=== PATIENT | male | born 1975 | race Two or more races ===

== ENCOUNTER 2018-08-03 19:08 | Inpatient (IN) | payer OTHER ==
[~2018-08-03] VITALS: Ht 175.3 cm; Wt 212.0 kg
[2018-08-03] MEDS ORDERED: METFORMIN HCL500 M1 PO (19:22)
[2018-08-03] MEDS ORDERED: COZAAR25 MG PO (19:22)
[2018-08-03] MEDS ORDERED: ALPRAZOLAM2 MG PO (19:23)
== END 2018-08-16 19:59 | disposition home or self-care (01) | DRG 602 ==
LOC: ER 19:08 → MEDJ 08-04 08:51
PROVIDERS: Specialist; ADMIT Student in an Organized Health Care Education/Training Program
PROC: BQ38ZZZ Magnetic Resonance Imaging (MRI) of Left Knee (ICD-10-PCS; 2018-08-05)
PROC: 0H9LX0Z Drainage of Left Lower Leg Skin with Drainage Device, External Approach (ICD-10-PCS; principal; 2018-08-11 15:00)
DX: L03.116 Cellulitis of left lower limb (principal); A41.9 Sepsis, unspecified organism; E11.628 Type 2 diabetes mellitus with other skin complications; B95.61 Methicillin susceptible Staphylococcus aureus infection as the cause of diseases classified elsewhere; Z79.4 Long term (current) use of insulin; M25.462 Effusion, left knee; E11.65 Type 2 diabetes mellitus with hyperglycemia; E11.41 Type 2 diabetes mellitus with diabetic mononeuropathy; L02.416 Cutaneous abscess of left lower limb; S70.12XA Contusion of left thigh, initial encounter